=== PATIENT | male | born 1945 | race Caucasian/White ===

== ENCOUNTER 2017-07-11 09:39 | Inpatient (IN) | payer MEDICARE, MEDICAID ==
[2017-07-11] VITALS (41 sets, daily range): BP systolic 90–130; BP diastolic 44–70
[~2017-07-11] VITALS: Ht 172.7 cm; Wt 118.8 kg
[2017-07-11] MEDS ORDERED: HEPARIN-D5W 20,000 UNIT/500 ML 500 ML IV ONE (09:49)
[2017-07-11] MEDS ORDERED: NS 250ML 250 ML IV ONE (13:03)
[2017-07-11] MEDS ORDERED: NS 1000ML 1,000 ML ONE ×2 (13:03→15:18)
[2017-07-11] MEDS ORDERED: VERSED ONE (13:04)
[2017-07-11] MEDS ORDERED: LEVOPHED ONE (13:04)
[2017-07-11 13:19] LABS: ABG PCO2 38.2 mmHg (35.0-45.0); ABG PH 7.267 (7.350-7.450); BE(B) -9.2 mmol/L (-2.0-2.0); pO2 104.8 mmHg (75.0-100.0)
[2017-07-11] MEDS ORDERED: NS IV SCH (13:30)
[2017-07-11] MEDS ORDERED: VANCOMYCIN HCL IV SCH (13:30)
[2017-07-11 13:36] LABS: BASOPHIL % 0.2 % (0.0-0.2); EOSINOPHIL # 0.1 10^3/uL (0.0-0.2); EOSINOPHIL % 2.3 % (0.0-5.0); HEMOGLOBIN 8.8 g/dL (13.9-16.3); LYMPHOCYTES # 0.7 10^3/uL (1.0-4.8); LYMPHOCYTES % 15.1 % (24.0-44.0); MEAN CELL HGB 24.8 pg (26-34); MEAN PLATELET VOLUME 9.5 fL (7.8-11.0); MONOCYTES # 0.4 10^3/uL (0.3-0.8); MONOCYTES % 7.9 % (5.0-12.0); NEUTROPHIL # 3.6 10^3/uL (1.8-7.7); NEUTROPHILS % 74.1 % (41.0-85.0); RED CELL DISTRIBUTION WIDTH 15.3 % (11.5-14.5); WHITE BLOOD CELL 4.8 10^3/uL (4.5-11.0)
--- NOTE | 2017-07-11 13:55 | PCM.HP ---
History of Present Illness Reason for Visit: Altered mental status / Complete heart block History of Present Illness This is a 72-year-old male who was accepted in transfer from [facility]. He presented there by EMS for altered mental status and hypotension with complete heart block. Patient had been started on Levophed , but changed to Dopamine, and later Dobutamine was added for inotropic support. Patient had been on transcutanous pacing, but heart rate has increased with presser support. Labs in [place] showed BUN 53, creatinine 2.8; troponin 0.12; BNP 2930 and lactic acid 0.7 He was intubated before transfer by EMS to ICU at [facility] per Dr. Almendarez. Arrives with florid sepsis and hypotensive shock requiring inotropic support. The patient was on Versed drip at 5 mg/hr, Dopamine at 10 mcg/kg/min, and Dobutamine 5 mcg/kg/min. Upon arrival, patient found to be sedated partially, with response to pain; blood pressure 70's and pulse rate in 60's Central subclavian access on right made with x-ray for placement; also NG tube x-ray for placement done. Patient placed on ventilator with settings adjusted by Dr. Almendarez based on initial ABG. Cultures will be obtained for blood, urine, sputum, and wounds, as this patient has multiple decubitus wounds - coccyx, which is uncovered; both lower legs, dressed; and right hip, which is undressed, very deep and appears to be tunneling. Lactic acid initially 1.5 from ABG - which will be redrawn two hours after the first. Antibiotics and septic fluid resuscitation are ordered. Will continue necessary sedation and pain control while on ventilator. According to records, patient has had cerebrovascular incident, left side, with aphasia, Type II diabetes with skin complications; lumbar collapse of vertebra; protein calorie malnutrition; retinopathy, atherosclerotic heart disease with CABG; hypercholesterolemia; peripheral vascular disease of [place] right leg arteris with ulceration of part of the foot; hypertension; BPH with neuromuscular dysfunction of bladder; acute osteomyelitis of right ankle and foot, Past Medical History Cardiac: CAD, CHF, Other (hypokalemia) Pulmonary: COPD [employer]: CVA GI: GERD Musculoskeletal: Other (PVD) Renal/: Chronic Renal Insuff, UTI Past Surgical History: CABG Travel Hx EBOLA RISK:Travel to/contact w: No Is pt experiencing any Ebola s: No Review of Systems Constitutional: Weakness Neurological: Confusion (Poor orientation before intubation) Allergies: Coded Allergies: No Known Allergies (Unverified , 07/11/17) Scheduled Acetaminophen (Tylenol), 1 TAB PO Q4HR, (Reported) Acetaminophen With Codeine (Tylenol With Codeine #3 Tablet), 1 TAB PO Q4HR, ( Reported) Acetazolamide (Acetazolamide), 250 MG PO DAILY24, (Reported) Amlodipine Besylate (Amlodipine Besylate), 1 TAB PO DAILY, (Reported) Aspirin (Aspir 81), 1 TAB PO DAILY, (Reported) Cilostazol (Cilostazol), 1 TAB PO BID, (Reported) Clonidine Hcl (Clonidine Hcl), 1 TAB PO Q6HR, (Reported) Cyclobenzaprine Hcl (Flexeril), 1 TAB PO Q8HR, (Reported) Dextran 70/Hypromellose (Artificial Tears Eye Drops), 2 DROP OP BID, (Reported) Famotidine (Pepcid), 1 TAB PO BID, (Reported) Furosemide (Lasix), 1 TAB PO DAILY, (Reported) Insulin Glargine,Hum.rec.anlog (Lantus Solostar), 25 UNITS SQ BID, (Reported) Ipratropium/Albuterol Sulfate (Iprat-Albut 0.5-3(2.5) Mg/3 Ml), 3 ML IH Q4, ( Reported) Lactobacillus Acidophilus (Acidophilus), 1 EACH PO BID, (Reported) Losartan Potassium (Losartan Potassium), 1 TAB PO DAILY, (Reported) Melatonin (Melatonin), 1 TAB PO HS, (Reported) Metoprolol Tartrate 25MG (Lopresser 25MG), 1 TAB PO BID, (Reported) Ondansetron Hcl (Zofran), 1 TAB PO Q8HR, (Reported) Oseltamivir Phosphate (Tamiflu), 1 CAP PO DAILY24, (Reported) Potassium Chloride (Potassium Chloride), 1 CAP PO DAILY, (Reported) Simethicone (Simethicone), 160 MG PO Q6HR, (Reported) Tamsulosin Hcl (Flomax), 1 CAP PO DAILY, (Reported) Scheduled PRN Glucagon,Human Recombinant (Glucagon Emergency Kit), 1 MG IM PRN PRN for HYPOGLYCEMIA, (Reported) Loperamide Hcl (Loperamide), 4 MG PO PRN PRN for DIARRHEA, (Reported) VTE VTE Risk Score VTE Risk: Score 0-1 = Low Risk (Aggressive mobilization; early ambulation; no VTE prophylaxis required) Score 2: Moderate Risk (Intermittent/Pneumatic Compression Device OR Lovenox/Heparin/Coumadin) Score 3-4: High Risk (Intermittent/Pneumatic Compression Device AND Lovenox/Heparin/Coumadin) Score > or =5: Highest Risk (Intermittent/Pneumatic Compression Device AND Lovenox/Heparin/Coumadin) Exam General Appearance: Other (sedated, ventilated, restrained) HEENT: Atraumatic Cardiovascular: Other (bradycardia with hypotension) Skin: Other (Decubitus ulceration to coccyx, bilateral lower legs, right lateral hip/pelvis) Neuro: Other (Sedated, ventilated, restrained.) Psych/Mental Status: Other (Sedated, ventilated, restrained.) Assessment/Plan Assessment/Plan Problems: (1) Protein calorie malnutrition Status: Chronic SEVERITY: MODERATE PERSISTENT COMPLICATION TYPE: W/ STATUS ICD Code: E46 - Unspecified protein-calorie malnutrition SNOMED: 034319326 (2) Type II diabetes mellitus Status: Chronic SEVERITY: SEVERE PERSISTENT COMPLICATION TYPE: W/ ACUTE EXACERBATION ICD Code: E11.9 - Type 2 diabetes mellitus without complications SNOMED: 82639215 (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 SEVERITY: MODERATE PERSISTENT COMPLICATION TYPE: W/ ACUTE EXACERBATION ICD Code: E11.21 - Type 2 diabetes mellitus with diabetic nephropathy SNOMED: 25495859, 60493689 (4) Type II diabetes mellitus with peripheral artery disease Status: Chronic ICD Code: E11.51 - Type 2 diabetes mellitus with diabetic peripheral angiopathy without gangrene SNOMED: 87571388, 727194326 (5) Type II diabetes mellitus with ulcer Status: Acute SEVERITY: SEVERE PERSISTENT COMPLICATION TYPE: W/ ACUTE EXACERBATION ICD Code: E11.622 - Type 2 diabetes mellitus with other skin ulcer; L98.499 - Non-pressure chronic ulcer of skin of other sites with unspecified severity SNOMED: 647393280 (6) Complete heart block Status: Acute SEVERITY: SEVERE PERSISTENT COMPLICATION TYPE: W/ ACUTE EXACERBATION ICD Code: I44.2 - Atrioventricular block, complete SNOMED: 09596548 (7) Septic shock due to undetermined organism Status: Acute SEVERITY: SEVERE PERSISTENT COMPLICATION TYPE: W/ ACUTE EXACERBATION ICD Code: A41.9 - Sepsis, unspecified organism; R65.21 - Severe sepsis with septic shock SNOMED: 92639137 Plan Admit to ICU IV fluids for sepsis protocol started with LR/D5W (blood sugar 63). [facility] ABG - 7.267, CO2 38.2, O2 104.8; LA 1.5 (increased from [place]). Troponin from our lab <0.02; CKMB 12.1. Urine is pasty thick and white, with positive protein, blood, bacteria, RBC, WBC and Leukocyte esterase. Currently on vent with SIMV on 50% FIO2, TV 500, PEEP 5, PS 7. Sputum culture and gram stain ordered. Central venous line in place with CVP, pressor support. Skin wounds to be cultured and Wound Care team to address. Padgett cath - IV peripheral, two currently. Restraints in place. Nursing will contact family - DNR/Full code status to be discussed. SCDs cannot be used over leg wounds - Lovenox will be ordered. Vancomycin and Zosyn will be added for antibiotic coverage. Echocardiogram has been delayed due to patient being on Bear-Huggr for rectal temp of 87.0. Son has not been reached, but I did speak with the step-daughter and step-son - the is unable to provide any assistance as she is also being put in facility for dementia. Was advised that at some distant time, the social media director at another facility asked and the patient told her/him that he wanted everything done for him. At this time, we will continue to try to contact the son - Jaime Torres. Problem Qualifiers (1) Protein calorie malnutrition: Protein-calorie malnutrition severity: moderate Qualified Codes: E44.0 - Moderate protein-calorie malnutrition (2) Type II diabetes mellitus: Diabetes mellitus complication status: with skin complications Diabetes mellitus complication detail: with other skin ulcer Diabetes mellitus mcfp insulin use: unspecified mcfp insulin use status Qualified Codes: E11.622 - Type 2 diabetes mellitus with other skin ulcer; L98.499 - Non- pressure chronic ulcer of skin of other sites with unspecified severity MILAN FAIR APRN, NP Jul 11, 2017 13:55 DEA ALMENDAREZ MD Jul 11, 2017 17:52
[2017-07-11] MEDS: ZOSYN 3.375 GM/50 ML 50 ML IV SCH ×2 (14:00→20:05)
[2017-07-11 14:06] LABS: APPEARANCE,URINE CLOUDY (CLEAR); BILIRUBIN,URINE NEGATIVE (NEGATIVE); UA COLOR STRAW (YELLOW); UROBILINOGEN,URINE NORMAL (NEGATIVE)
[2017-07-11] MEDS ORDERED: D5LR 1000ML 1,000 ML ONE (14:06)
[2017-07-11 14:07] LABS: WBC,URINE TNTC WBC/HPF (0-2)
--- NOTE | 2017-07-11 14:12 | DIREP ---
PROCEDURE:CHEST 1 VIEW COMPARISON:[facility], CR, XRAY CHEST SINGLE VW, 07/11/2017, 10:07 AM. INDICATIONS:sheath placement FINDINGS: LUNGS/PLEURA:Stable ETT. Lordotic projection and low lung volumes. Stable right basilar haziness consistent with pleural effusion, atelectasis or pneumonia. Stable mild diffuse interstitial thickening. No pneumothorax. CARDIAC:Size difficult to evaluate due to elevated hemidiaphragms. CABG. Prominent pulmonary vascularity. MEDIASTINUM:Normal. BONES:Normal. OTHER:Placement of right subclavian hemostatic sheath with the tip overlying the SVC. NGT courses off the field of view. CONCLUSION: 1. No pneumothorax post right subclavian hemostatic sheath placement. 2. Stable right basilar pulmonary opacities. 3. Stable mild pulmonary vascular congestion versus accentuation from low lung volumes. Dictated by: Consuelo Chandler MD on 07/11/2017 at 02:06 PM
--- NOTE | 2017-07-11 14:14 | PCM.EKG ---
[facility] Test Date: 2017-07-11 Test Time: 13:33:31 Pat Name: CORRY DUVALL Department: Room: ICU3 A Gender: M Tape Maker: RT : 1945 Requested By: MILAN FAIR Order Number: [id number] Reading MD: Measurements Intervals [place]bler Rate: 64 P: OR: QRS: 54 QRSD: 96 T: 51 QT: 428 QTc: 441 Interpretive Statements Junctional rhythm Low voltage QRS Abnormal ECG No previous ECG available for comparison Please click the below link to view image of tracing.
--- NOTE | 2017-07-11 14:17 | OPH ---
DATE OF SURGERY: 07/11/2017 PROCEDURE PERFORMED: Insertion of central venous access into right subclavian vein using a sterile technique. COMPLICATIONS: None. BLOOD LOSS: Minimal, less than 10 mL INDICATIONS: The patient is a 72-year-old gentleman who is a custodial resident, transferred initially to [facility] emergency room for evaluation of heart block, hypotension, altered mental status, and early sepsis, and then transferred to our facility to manage cardiac condition and the possibility of a complete heart block. Upon arrival, the patient was on 3 vasopressors through peripheral access, and given the need to establish a central venous access for more medical management and resuscitation with fluids, antibiotics, and IV pressors, and the possible need to pace the patient through transvenous temporary pacing in case a recurrence of a heart block was to be noted, and the decision was made to proceed with insertion of a central venous access. DESCRIPTION OF PROCEDURE: The right anterior chest wall was prepped and draped and sterilized properly. The right subclavicular space was engaged successfully with lidocaine for local analgesia. The venous access needle was advanced carefully into the right subclavian vein and engaged successfully followed by advancing the guidewire. The skin was tunneled through the dilator followed by advancing a 6-Cypriot sheath sutured to the skin with positive blood flow in the sheath port, and that was successfully placed and without complications. The patient was already intubated. IMPRESSION: 1. Under sterile technique, this was a successful insertion of a 6-Cypriot central venous access sheath through the right subclavian vein, to be utilized as a central venous access catheter and possible port for placing a transvenous pacemaker wire for future needs. 2. The procedure was well tolerated and without immediate complication. RECOMMENDATIONS: 1. Chest x-ray. 2. Okay to start using the sheath to infuse fluids, antibiotics, and pressors if needed. 3. Please maintain sterility and good fixation to the skin in case the sheath would be needed to insert a transvenous temporary pacemaker. The procedure was well tolerated and was without any immediate complication. Yanci Almendarez MD DR: DAMIEN/magda JOB# [id number]
--- NOTE | 2017-07-11 14:18 | DIREP ---
PROCEDURE:XRAY ABDOMEN SINGLE VW COMPARISON:None. INDICATIONS:NG tube place FINDINGS: A single view centered on the hemidiaphragm shows the NGT side hole at the EG junction and NGT tip in the superior gastric fundus. CONCLUSION:NGT side hole at the EG junction and should be advanced. Dictated by: Consuelo Chandler MD on 07/11/2017 at 02:11 PM
[2017-07-11 14:29] LABS: CALCIUM 8.5 mg/dL (8.4-10.5); CARBON DIOXIDE 17.5 mmol/L (20.0-32)
[2017-07-11] MEDS ORDERED: ONDA4TAB7 PO (14:35)
[2017-07-11] MEDS ORDERED: OSEL30CA PO (14:35)
[2017-07-11] MEDS ORDERED: ACET-685 PO (14:35)
[2017-07-11] MEDS ORDERED: ACET325T12 PO (14:35)
[2017-07-11] MEDS ORDERED: IPRA3AMP IH (14:35)
[2017-07-11] MEDS ORDERED: DEXT15DR5 OP (14:52)
[2017-07-11] MEDS ORDERED: LOPE2CAP PO (14:52)
[2017-07-11] MEDS ORDERED: TAMS-14 PO (14:52)
[2017-07-11] MEDS ORDERED: AMLO10TA2 PO (14:52)
[2017-07-11] MEDS ORDERED: ACET250T2 PO (14:52)
[2017-07-11] MEDS ORDERED: INSU100I13 SQ (14:52)
[2017-07-11] MEDS ORDERED: CYCL10TA2 PO (14:52)
[2017-07-11] MEDS ORDERED: POTA10CA PO (14:52)
[2017-07-11] MEDS ORDERED: MELA3TAB2 PO (14:52)
[2017-07-11] MEDS ORDERED: FAMO-75 PO (14:52)
[2017-07-11] MEDS ORDERED: LOSA25TA5 PO (14:52)
[2017-07-11] MEDS ORDERED: LACT1CAP4 PO (14:52)
[2017-07-11] MEDS ORDERED: SIME80TA16 PO (14:52)
[2017-07-11] MEDS ORDERED: FURO-80 PO (14:52)
[2017-07-11] MEDS ORDERED: ASPI-484 PO (14:52)
[2017-07-11] MEDS ORDERED: GLUC1KIT IM (14:52)
[2017-07-11] MEDS ORDERED: CILO100T PO (14:52)
[2017-07-11] MEDS ORDERED: CLON0.1T PO (14:52)
[2017-07-11] MEDS ORDERED: METO25TA4 PO (14:52)
[2017-07-11] MEDS: NS IV SCH ×3 (15:00→17:58)
[2017-07-11] MEDS: VANCOMYCIN HCL IV SCH (15:00)
[2017-07-11 15:51] LABS: ABG PCO2 39.6 mmHg (35.0-45.0); ABG PH 7.225 (7.350-7.450); BE(B) -10.9 mmol/L (-2.0-2.0)
[2017-07-11] MEDS ORDERED: NS 1000ML 2,000 ML ONE (16:11)
[2017-07-11] MEDS ORDERED: DOPAMINE 400 MG/D5W 250 ML 250 ML IV ONE (16:35)
[2017-07-11] MEDS ORDERED: [UNRECOGNIZED DRUG - OTHER] IV SCH (17:00)
[2017-07-11] MEDS ORDERED: SODIUM BICARBONATE IV SCH (17:00)
[2017-07-11] MEDS ORDERED: BUMINATE 25% 100 ML IV ONE (17:35)
[2017-07-11] MEDS: DOPAMINE 400 MG/D5W 250 ML 250 ML IV SCH ×2 (17:56→22:29)
[2017-07-11] MEDS: SODIUM BICARBONATE IV SCH (17:57)
[2017-07-11] MEDS: VERSED IV SCH (17:58)
[2017-07-11] MEDS ORDERED: BUMINATE 25% IV ONE (18:00)
[2017-07-11] MEDS ORDERED: LOVENOX SQ ONE (19:56)
[2017-07-11] MEDS: LOVENOX SQ SCH (20:09)
[2017-07-11] MEDS ORDERED: NS 500ML 500 ML IV ONE (20:19)
[2017-07-11] MEDS ORDERED: LASIX ONE (21:07)
[2017-07-11] MEDS ORDERED: LASIX IV STA (21:25)
[2017-07-11] MEDS ORDERED: DEXTROSE 50%-WATER SYRINGE IV ONE (23:56)
[2017-07-12] VITALS (78 sets, daily range): BP systolic 84–149; BP diastolic 41–76
[2017-07-12] MEDS: ZOSYN 3.375 GM/50 ML 50 ML IV SCH ×4 (01:11→19:40)
[2017-07-12] MEDS: VANCOMYCIN HCL IV SCH (02:33)
[2017-07-12] MEDS: NS IV SCH ×5 (02:33→22:14)
[2017-07-12] MEDS ORDERED: LEVOPHED ONE (02:56)
[2017-07-12] MEDS ORDERED: NS 250ML 250 ML IV ONE (02:56)
[2017-07-12] MEDS: VERSED IV SCH ×3 (03:05→22:14)
[2017-07-12] MEDS: LEVOPHED 8 MG in NS 250ML 250 ML IV SCH ×2 (03:07→16:36)
[2017-07-12] MEDS: DOPAMINE 400 MG/D5W 250 ML 250 ML IV SCH ×3 (04:34→23:22)
[2017-07-12 05:54] LABS: BASOPHIL % 0.1 % (0.0-0.2); EOSINOPHIL # 0.1 10^3/uL (0.0-0.2); EOSINOPHIL % 1.4 % (0.0-5.0); HEMOGLOBIN 7.9 g/dL (13.9-16.3); LYMPHOCYTES # 0.4 10^3/uL (1.0-4.8); LYMPHOCYTES % 5.6 % (24.0-44.0); MEAN CELL HGB 25.2 pg (26-34); MEAN CELL HGB CONCENTRATION 32.4 g/dL (33-37); MEAN PLATELET VOLUME 9.1 fL (7.8-11.0); MONOCYTES # 0.6 10^3/uL (0.3-0.8); NEUTROPHIL # 6.7 10^3/uL (1.8-7.7); NEUTROPHILS % 84.9 % (41.0-85.0); PLATELET COUNT 210 10^3/uL (150-400); RED CELL DISTRIBUTION WIDTH 15.2 % (11.5-14.5); WHITE BLOOD CELL 7.9 10^3/uL (4.5-11.0)
--- NOTE | 2017-07-12 05:59 | PCM.EKG ---
[facility] Test Date: 2017-07-12 Test Time: 06:00:40 Pat Name: CORRY DUVALL Department: Room: ICU3 A Gender: M English And Reading Instructor: CAROLE : 1945 Requested By: DEA JUDGE Order Number: [id number] Reading MD: Measurements Intervals [place] Rate: 78 P: 53 CA: 250 QRS: 104 QRSD: 78 T: 54 QT: 354 QTc: 403 Interpretive Statements Sinus rhythm with 1st degree AV block Low voltage QRS Borderline ECG No previous ECG available for comparison Please click the below link to view image of tracing.
[2017-07-12 06:23] LABS: BAND NEUTROPHILS 3 % (2-6); LYMPHOCYTE 8 % (25-36); MONOCYTE 8 % (3-9); SEGMENTED NEUTROPHILS 81 % (31-76)
[2017-07-12 06:24] LABS: ALANINE AMINOTRANSFERASE(ML) 22 U/L (12-78); ALKALINE PHOSPHATASE 91 U/L (50-136); ASPARTATE AMINO TRANSFERASE 17 U/L (0-35); CALCIUM 7.8 mg/dL (8.4-10.5); CARBON DIOXIDE 17.6 mmol/L (20.0-32); GLUCOSE 71 mg/dL (70-110)
[2017-07-12] MEDS ORDERED: DEXTROSE 50%-WATER SYRINGE IV ONE ×3 (07:15→11:32)
[2017-07-12] MEDS ORDERED: DEXTROSE 50%-WATER SYRINGE IV STA ×2 (07:27→11:44)
[2017-07-12] MEDS: SODIUM BICARBONATE IV SCH (07:29)
--- NOTE | 2017-07-12 08:40 | PRM.PN ---
Subjective Subjective Date: Jul 12, 2017 Time: 08:33 Subjective Patient remains on ventilator with IV inotrope medications by IVPB. Blood pressure is stable and so dopamine will be weaned at 1 mcg/kg/min down per hour. Lungs now have coarse rales throughout all mahmood. ABG is currently being drawn. Echo will be done as soon as this is completed. Patient History: VTE VTE Risk Total Score: >5 VTE Risk Score VTE Risk: Score 0-1 = Low Risk (Aggressive mobilization; early ambulation; no VTE prophylaxis required) Score 2: Moderate Risk (Intermittent/Pneumatic Compression Device OR Lovenox/Heparin/Coumadin) Score 3-4: High Risk (Intermittent/Pneumatic Compression Device AND Lovenox/Heparin/Coumadin) Score > or =5: Highest Risk (Intermittent/Pneumatic Compression Device AND Lovenox/Heparin/Coumadin) Review of Systems Constitutional: Weakness Respiratory: Other (Coarse rales to all mahmood) Genitourinary: Other (Catheter draining cloudy urine - output 1000+ over auto refinisher. ) Neurological: Other (Sedated, intubated, restrained) Allergies: Coded Allergies: No Known Allergies (Unverified , 07/11/17) Scheduled Acetaminophen (Tylenol), 1 TAB PO Q4HR, (Reported) Acetaminophen With Codeine (Tylenol With Codeine #3 Tablet), 1 TAB PO Q4HR, ( Reported) Acetazolamide (Acetazolamide), 250 MG PO DAILY24, (Reported) Amlodipine Besylate (Amlodipine Besylate), 1 TAB PO DAILY, (Reported) Aspirin (Aspir 81), 1 TAB PO DAILY, (Reported) Cilostazol (Cilostazol), 1 TAB PO BID, (Reported) Clonidine Hcl (Clonidine Hcl), 1 TAB PO Q6HR, (Reported) Cyclobenzaprine Hcl (Flexeril), 1 TAB PO Q8HR, (Reported) Dextran 70/Hypromellose (Artificial Tears Eye Drops), 2 DROP OP BID, (Reported) Famotidine (Pepcid), 1 TAB PO BID, (Reported) Furosemide (Lasix), 1 TAB PO DAILY, (Reported) Insulin Glargine,Hum.rec.anlog (Lantus Solostar), 25 UNITS SQ BID, (Reported) Ipratropium/Albuterol Sulfate (Iprat-Albut 0.5-3(2.5) Mg/3 Ml), 3 ML IH Q4, ( Reported) Lactobacillus Acidophilus (Acidophilus), 1 EACH PO BID, (Reported) Losartan Potassium (Losartan Potassium), 1 TAB PO DAILY, (Reported) Melatonin (Melatonin), 1 TAB PO HS, (Reported) Metoprolol Tartrate 25MG (Lopresser 25MG), 1 TAB PO BID, (Reported) Ondansetron Hcl (Zofran), 1 TAB PO Q8HR, (Reported) Oseltamivir Phosphate (Tamiflu), 1 CAP PO DAILY24, (Reported) Potassium Chloride (Potassium Chloride), 1 CAP PO DAILY, (Reported) Simethicone (Simethicone), 160 MG PO Q6HR, (Reported) Tamsulosin Hcl (Flomax), 1 CAP PO DAILY, (Reported) Scheduled PRN Glucagon,Human Recombinant (Glucagon Emergency Kit), 1 MG IM PRN PRN for HYPOGLYCEMIA, (Reported) Loperamide Hcl (Loperamide), 4 MG PO PRN PRN for DIARRHEA, (Reported) Objective Vitals and I/O Vital Sign - Last 24 Hours 07/11/17 07/11/17 07/11/17 07/11/17 13:09 13:15 13:30 13:45 Pulse 61 105 66 65 Resp 12 40 28 16 B/P (MAP) 90/48 (62) 98/53 (68) 98/48 (65) 96/54 (68) Pulse Ox 100 100 100 100 07/11/17 07/11/17 07/11/17 07/11/17 14:00 14:00 14:15 14:30 Temp 86.7 86.7 Pulse 65 65 65 Resp 16 16 16 B/P (MAP) 103/46 (65) 114/59 (77) 106/57 (73) Pulse Ox 97 100 100 O2 Delivery Mechanical Ventilator 07/11/17 07/11/17 07/11/17 07/11/17 14:33 14:35 14:42 14:46 Temp 86.9 Pulse 65 70 65 Resp 12 19 16 B/P (MAP) 117/57 (77) Pulse Ox 100 100 100 100 O2 Delivery Mechanical Ventilator FiO2 50 50 07/11/17 07/11/17 07/11/17 07/11/17 15:16 15:30 15:31 15:46 Temp 87.3 Pulse 66 66 67 B/P (MAP) 118/55 (76) Pulse Ox 95 100 100 92 07/11/17 07/11/17 07/11/17 07/11/17 15:52 15:53 16:00 16:01 Pulse 75 66 65 65 B/P (MAP) 130/61 (84) 111/56 (74) 113/59 (77) Pulse Ox 96 95 96 97 07/11/17 07/11/17 07/11/17 07/11/17 16:16 16:23 16:30 16:31 Temp 89.5 Pulse 67 68 68 69 Resp 18 B/P (MAP) 112/58 (76) Pulse Ox 96 96 94 93 FiO2 40 07/11/17 07/11/17 07/11/17 07/11/17 16:45 16:46 16:58 16:58 Pulse 69 69 72 72 Resp 16 16 B/P (MAP) 106/53 (70) Pulse Ox 95 97 96 FiO2 40 07/11/17 07/11/17 07/11/17 07/11/17 16:58 17:00 17:01 17:15 Pulse 71 71 73 B/P (MAP) 114/55 (74) 109/55 (73) Pulse Ox 95 96 98 O2 Delivery Mechanical Ventilator 07/11/17 07/11/17 07/11/17 07/11/17 17:16 17:30 17:31 18:06 Temp 90.6 Pulse 72 75 75 78 Resp 21 B/P (MAP) 117/60 (79) Pulse Ox 98 97 98 97 FiO2 40 07/11/17 07/11/17 07/11/17 07/11/17 19:00 19:00 19:00 19:15 Temp 94.5 Pulse 82 94 84 Resp 28 28 B/P (MAP) 110/56 (74) 114/58 (76) Pulse Ox 97 98 O2 Delivery Mechanical Ventilator FiO2 40 07/11/17 07/11/17 07/11/17 07/11/17 19:30 19:45 20:00 20:07 Temp 96.1 Pulse 86 87 88 89 Resp 28 29 29 25 B/P (MAP) 113/56 (75) 112/57 (75) 115/54 (74) Pulse Ox 98 98 98 99 O2 Delivery Mechanical Ventilator FiO2 40 07/11/17 07/11/17 07/11/17 07/11/17 20:08 20:15 20:21 20:30 Pulse 89 89 89 90 Resp B/P (MAP) 109/48 (68) 108/51 (70) 111/55 (73) Pulse Ox 99 100 98 98 FiO2 40 07/11/17 07/11/17 07/11/17 07/11/17 20:45 21:00 21:15 21:27 Temp 97.3 Pulse 92 93 93 Resp B/P (MAP) 124/70 (88) 114/59 (77) 109/55 (73) 116/76 Pulse Ox 97 97 98 07/11/17 07/11/17 07/11/17 07/11/17 21:30 21:45 22:00 22:01 Temp 97.9 97.9 Pulse 93 94 94 93 Resp B/P (MAP) 102/52 (69) 107/52 (70) 106/48 (67) 103/44 (63) Pulse Ox 97 97 97 98 07/11/17 07/11/17 07/11/17 07/11/17 22:05 22:15 22:26 22:30 Temp 98.6 Pulse 90 94 94 95 Resp B/P (MAP) 105/48 (67) 108/53 (71) 108/53 (71) Pulse Ox 99 97 99 98 FiO2 40 07/11/17 07/11/17 07/11/17 07/11/17 22:45 23:00 23:15 23:25 Temp 99.0 Pulse 94 95 95 94 Resp B/P (MAP) 107/54 (71) 110/58 (75) 110/53 (72) Pulse Ox 99 98 97 FiO2 40 07/11/17 07/11/17 07/12/17 07/12/17 23:30 23:45 00:00 00:00 Temp 99.3 99.2 Pulse 94 93 92 92 Resp 29 B/P (MAP) 107/54 (71) 111/55 (73) 111/52 (71) 111/52 (71) Pulse Ox 98 98 100 100 07/12/17 07/12/17 07/12/17 07/12/17 00:00 00:08 00:14 00:15 Pulse 91 89 91 Resp 28 B/P (MAP) 105/55 (72) Pulse Ox 99 99 O2 Delivery Mechanical Ventilator FiO2 40 07/12/17 07/12/17 07/12/17 07/12/17 00:30 00:45 01:00 01:15 Temp 99.0 Pulse 89 87 84 82 Resp 27 B/P (MAP) 107/57 (74) 100/54 (69) 93/55 (68) 96/50 (65) Pulse Ox 99 100 100 99 07/12/17 07/12/17 07/12/17 07/12/17 01:30 01:45 01:56 02:00 Temp 98.0 96.8 Pulse 84 81 81 81 Resp B/P (MAP) 97/50 (66) 91/48 (62) 92/50 (64) 93/45 (61) Pulse Ox 98 99 98 98 07/12/17 07/12/17 07/12/17 07/12/17 02:15 02:21 02:30 02:45 Pulse 81 81 81 81 Resp B/P (MAP) 94/43 (60) 93/49 (64) 95/41 (59) Pulse Ox 97 99 97 98 FiO2 40 07/12/17 07/12/17 07/12/17 07/12/17 03:00 03:15 03:23 03:30 Temp 97.0 Pulse 80 79 80 79 Resp B/P (MAP) 92/48 (63) 90/47 (61) 93/48 (63) Pulse Ox 98 97 97 07/12/17 07/12/17 07/12/17 07/12/17 03:33 03:45 03:53 04:00 Temp 97.6 Pulse 80 80 80 81 Resp 25 B/P (MAP) 97/54 (68) 105/57 (73) Pulse Ox 97 98 97 97 FiO2 40 40 07/12/17 07/12/17 07/12/17 07/12/17 04:15 04:30 04:46 05:00 Pulse 80 80 76 79 Resp 24 24 B/P (MAP) 101/52 (68) 105/51 (69) 92/52 (65) 105/49 (67) Pulse Ox 98 98 98 98 07/12/17 07/12/17 07/12/17 07/12/17 05:00 05:16 05:30 05:45 Pulse 81 79 78 Resp 24 24 24 B/P (MAP) 90/56 (67) 105/56 (72) 102/52 (69) Pulse Ox 97 98 97 O2 Delivery Mechanical Ventilator 07/12/17 07/12/17 07/12/17 07/12/17 05:56 06:22 06:22 07:20 Pulse 78 78 80 78 Resp 25 23 27 16 Pulse Ox 97 97 FiO2 40 40 07/12/17 07/12/17 07:20 07:20 Pulse 78 Resp 16 Pulse Ox 97 O2 Delivery Mechanical Ventilator O2 Flow Rate 40.00 FiO2 40 Intake and Output 07/11/17 07/11/17 07/12/17 15:00 23:00 07:00 Intake Total 3943 ml 2461 ml Output Total 750 ml 255 ml Balance 3193 ml 2206 ml General: Other (Sedated, intubated, restrained. ) Lungs: Other (Coarse rales all mahmood) Heart: Regular rate Neuro: Other (Sedated, intubated, restrained. ) Psych/Mental Status: Mental status NL (Sedated, intubated, restrained. ) Medication Reconciliation Scheduled Acetaminophen (Tylenol), 1 TAB PO Q4HR, (Reported) Acetaminophen With Codeine (Tylenol With Codeine #3 Tablet), 1 TAB PO Q4HR, ( Reported) Acetazolamide (Acetazolamide), 250 MG PO DAILY24, (Reported) Amlodipine Besylate (Amlodipine Besylate), 1 TAB PO DAILY, (Reported) Aspirin (Aspir 81), 1 TAB PO DAILY, (Reported) Cilostazol (Cilostazol), 1 TAB PO BID, (Reported) Clonidine Hcl (Clonidine Hcl), 1 TAB PO Q6HR, (Reported) Cyclobenzaprine Hcl (Flexeril), 1 TAB PO Q8HR, (Reported) Dextran 70/Hypromellose (Artificial Tears Eye Drops), 2 DROP OP BID, (Reported) Famotidine (Pepcid), 1 TAB PO BID, (Reported) Furosemide (Lasix), 1 TAB PO DAILY, (Reported) Insulin Glargine,Hum.rec.anlog (Lantus Solostar), 25 UNITS SQ BID, (Reported) Ipratropium/Albuterol Sulfate (Iprat-Albut 0.5-3(2.5) Mg/3 Ml), 3 ML IH Q4, ( Reported) Lactobacillus Acidophilus (Acidophilus), 1 EACH PO BID, (Reported) Losartan Potassium (Losartan Potassium), 1 TAB PO DAILY, (Reported) Melatonin (Melatonin), 1 TAB PO HS, (Reported) Metoprolol Tartrate 25MG (Lopresser 25MG), 1 TAB PO BID, (Reported) Ondansetron Hcl (Zofran), 1 TAB PO Q8HR, (Reported) Oseltamivir Phosphate (Tamiflu), 1 CAP PO DAILY24, (Reported) Potassium Chloride (Potassium Chloride), 1 CAP PO DAILY, (Reported) Simethicone (Simethicone), 160 MG PO Q6HR, (Reported) Tamsulosin Hcl (Flomax), 1 CAP PO DAILY, (Reported) Scheduled PRN Glucagon,Human Recombinant (Glucagon Emergency Kit), 1 MG IM PRN PRN for HYPOGLYCEMIA, (Reported) Loperamide Hcl (Loperamide), 4 MG PO PRN PRN for DIARRHEA, (Reported) Assessment/Plan Assessment/Plan Problems: (1) Septic shock due to undetermined organism Status: Acute SEVERITY: SEVERE PERSISTENT COMPLICATION TYPE: W/ ACUTE EXACERBATION ICD Code: A41.9 - Sepsis, unspecified organism; R65.21 - Severe sepsis with septic shock SNOMED: 70821866 (2) Type II diabetes mellitus with peripheral artery disease Status: Chronic SEVERITY: MODERATE PERSISTENT COMPLICATION TYPE: W/ STATUS ICD Code: E11.51 - Type 2 diabetes mellitus with diabetic peripheral angiopathy without gangrene SNOMED: 79638430, 004724742 (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 Continue medications as ordered. Patient has had multiple episodes of hypoglycemia, has order for D50 as needed. Cultures have returned for sputum and wounds showing Gram positive cocci and Gram negative rods. Continue antibiotics. Repeat ABGs, EKGs, chest x-ray as ordered. MILAN FAIR APRN,LOG WASHER Jul 12, 2017 08:40
[2017-07-12] MEDS: PROTONIX IV IV SCH (09:43)
[2017-07-12 09:47] LABS: ABG PH 7.253 (7.350-7.450); BE(B) -12.3 mmol/L (-2.0-2.0); HCO3act 13.8 mmol/L (22.0-26.0)
[2017-07-12 13:55] LABS: ABG PH 7.317 (7.350-7.450); BE(B) -9.2 mmol/L (-2.0-2.0); pO2 57.4 mmHg (75.0-100.0)
[2017-07-12] MEDS: D5W-1/2NS 1000ML 1,000 ML IV SCH (15:42)
[2017-07-12] MEDS ORDERED: DIFLUCAN IV ONE (18:30)
[2017-07-12] MEDS: VANCOMYCIN HCL 1 GM in NS 250ML 250 ML IV SCH (20:30)
[2017-07-12] MEDS: LOVENOX SQ SCH (21:12)
[2017-07-13] VITALS (99 sets, daily range): BP systolic 80–191; BP diastolic 38–90
[2017-07-13] MEDS: ZOSYN 3.375 GM/50 ML 50 ML IV SCH ×3 (01:27→15:25)
[2017-07-13] MEDS: D5W-1/2NS 1000ML 1,000 ML IV SCH ×2 (01:31→14:46)
--- NOTE | 2017-07-13 04:59 | PCM.EKG ---
[facility] Test Date: 2017-07-13 Test Time: 05:01:22 Pat Name: CORRY DUVALL Department: Room: ICU3 A Gender: M International Tax Manager: CAROLE : 1945 Requested By: DEA JUDGE Order Number: [id number] Reading MD: Measurements Intervals [place] Rate: 79 P: 260 LA: 158 QRS: 57 QRSD: 78 T: 88 QT: 366 QTc: 419 Interpretive Statements Unusual P axis, possible ectopic atrial rhythm with premature atrial complexes Low voltage QRS Abnormal ECG No previous ECG available for comparison Please click the below link to view image of tracing.
[2017-07-13 05:50] LABS: EOSINOPHIL # 0.1 10^3/uL (0.0-0.2); LYMPHOCYTES # 0.5 10^3/uL (1.0-4.8); LYMPHOCYTES % 13.6 % (24.0-44.0); MEAN CELL HGB 23.8 pg (26-34); MEAN CELL HGB CONCENTRATION 30.1 g/dL (33-37); MEAN CORP VOLUME 79.2 fL (78-100); MEAN PLATELET VOLUME 9.6 fL (7.8-11.0); MONOCYTES # 0.4 10^3/uL (0.3-0.8); NEUTROPHIL # 2.4 10^3/uL (1.8-7.7); NEUTROPHILS % 71.8 % (41.0-85.0); RED CELL DISTRIBUTION WIDTH 15.7 % (11.5-14.5); WHITE BLOOD CELL 3.4 10^3/uL (4.5-11.0)
[2017-07-13 05:57] LABS: HEMOGLOBIN 6.2 g/dL (13.9-16.3)
[2017-07-13 06:19] LABS: CALCIUM 7.5 mg/dL (8.4-10.5); CARBON DIOXIDE 17.3 mmol/L (20.0-32)
[2017-07-13 06:45] LABS: EOSINOPHIL # 0.1 10^3/uL (0.0-0.2); LYMPHOCYTES # 0.5 10^3/uL (1.0-4.8); LYMPHOCYTES % 15.5 % (24.0-44.0); MEAN CELL HGB 23.9 pg (26-34); MEAN CELL HGB CONCENTRATION 30.2 g/dL (33-37); MEAN CORP VOLUME 79.2 fL (78-100); MEAN PLATELET VOLUME 8.8 fL (7.8-11.0); MONOCYTES # 0.4 10^3/uL (0.3-0.8); NEUTROPHIL # 2.2 10^3/uL (1.8-7.7); NEUTROPHILS % 67.2 % (41.0-85.0); RED CELL DISTRIBUTION WIDTH 15.7 % (11.5-14.5); WHITE BLOOD CELL 3.2 10^3/uL (4.5-11.0)
[2017-07-13 06:47] LABS: HEMOGLOBIN 6.1 g/dL (13.9-16.3)
[2017-07-13 08:21] LABS: ABG PCO2 23.9 mmHg (35.0-45.0); ABG PH 7.402 (7.350-7.450); BE(B) -9.5 mmol/L (-2.0-2.0); HCO3act 14.5 mmol/L (22.0-26.0); pO2 120.8 mmHg (75.0-100.0)
[2017-07-13] MEDS ORDERED: HNS 500ML 500 ML IV ONE (08:59)
--- NOTE | 2017-07-13 09:19 | PRM.PN ---
Subjective Subjective Date: Jul 13, 2017 Time: 08:51 Subjective Patient remains sedated on ventilator, but both dopamine and dobutamine have been discontinued with stable blood pressures. Patient History: Events Since Last Encounter GENERAL - Patient does respond to voice by moving head but does not follow commands to open eyes. SKIN - Warm, dry. See Wound Care for specifics of open lesions to right hip, bilateral lower legs, coccyx. HEENT - Pupils 2 mm with poor response to constriction or dilation but positive blink to opening eyelids; NG tube, ET tube. CHEST - Lungs still with fine crackles; fair air exchange with ventilator. Cardiac rate 55-65, but blood pressure has decreased to 77/33 after dopamine was discontinued. ABDOMEN - Bowel sounds hypoactive - NG suction audible in upper mahmood and lung auscultation. PEREZ - Now yellowish urine with ~400 ml output over nightclub manager. LIMBS - Warm to touch; positive motion of arms. Restrained - soft restraints upper extremities to prevent interfering with devices unintentionally. VTE VTE Risk Total Score: >5 VTE Risk Score VTE Risk: Score 0-1 = Low Risk (Aggressive mobilization; early ambulation; no VTE prophylaxis required) Score 2: Moderate Risk (Intermittent/Pneumatic Compression Device OR Lovenox/Heparin/Coumadin) Score 3-4: High Risk (Intermittent/Pneumatic Compression Device AND Lovenox/Heparin/Coumadin) Score > or =5: Highest Risk (Intermittent/Pneumatic Compression Device AND Lovenox/Heparin/Coumadin) Review of Systems Respiratory: Other (Coarse rales to all mahmood) Genitourinary: Other (Catheter draining cloudy urine - output 1000+ over nightclub manager. ) Neurological: Other (Sedated, intubated, restrained) Allergies: Coded Allergies: No Known Allergies (Unverified , 07/11/17) Scheduled Acetaminophen (Tylenol), 1 TAB PO Q4HR, (Reported) Acetaminophen With Codeine (Tylenol With Codeine #3 Tablet), 1 TAB PO Q4HR, ( Reported) Acetazolamide (Acetazolamide), 250 MG PO DAILY24, (Reported) Amlodipine Besylate (Amlodipine Besylate), 1 TAB PO DAILY, (Reported) Aspirin (Aspir 81), 1 TAB PO DAILY, (Reported) Cilostazol (Cilostazol), 1 TAB PO BID, (Reported) Clonidine Hcl (Clonidine Hcl), 1 TAB PO Q6HR, (Reported) Cyclobenzaprine Hcl (Flexeril), 1 TAB PO Q8HR, (Reported) Dextran 70/Hypromellose (Artificial Tears Eye Drops), 2 DROP OP BID, (Reported) Famotidine (Pepcid), 1 TAB PO BID, (Reported) Furosemide (Lasix), 1 TAB PO DAILY, (Reported) Insulin Glargine,Hum.rec.anlog (Lantus Solostar), 25 UNITS SQ BID, (Reported) Ipratropium/Albuterol Sulfate (Iprat-Albut 0.5-3(2.5) Mg/3 Ml), 3 ML IH Q4, ( Reported) Lactobacillus Acidophilus (Acidophilus), 1 EACH PO BID, (Reported) Losartan Potassium (Losartan Potassium), 1 TAB PO DAILY, (Reported) Melatonin (Melatonin), 1 TAB PO HS, (Reported) Metoprolol Tartrate 25MG (Lopresser 25MG), 1 TAB PO BID, (Reported) Ondansetron Hcl (Zofran), 1 TAB PO Q8HR, (Reported) Oseltamivir Phosphate (Tamiflu), 1 CAP PO DAILY24, (Reported) Potassium Chloride (Potassium Chloride), 1 CAP PO DAILY, (Reported) Simethicone (Simethicone), 160 MG PO Q6HR, (Reported) Tamsulosin Hcl (Flomax), 1 CAP PO DAILY, (Reported) Scheduled PRN Glucagon,Human Recombinant (Glucagon Emergency Kit), 1 MG IM PRN PRN for HYPOGLYCEMIA, (Reported) Loperamide Hcl (Loperamide), 4 MG PO PRN PRN for DIARRHEA, (Reported) Objective Vitals and I/O Vital Sign - Last 24 Hours 07/12/17 07/12/17 07/12/17 07/12/17 09:00 09:15 09:23 09:30 Pulse 78 78 76 79 Resp 21 Pulse Ox 97 98 98 97 O2 Delivery Mechanical Ventilator FiO2 40 07/12/17 07/12/17 07/12/17 07/12/17 09:45 10:00 10:15 10:30 Pulse 79 77 78 79 Pulse Ox 97 97 96 97 07/12/17 07/12/17 07/12/17 07/12/17 10:33 10:45 11:00 11:11 Temp 98.2 Pulse 78 80 71 73 Resp 16 21 B/P (MAP) 114/53 (73) 124/58 (80) 84/43 (57) Pulse Ox 96 93 95 95 FiO2 40 07/12/17 07/12/17 07/12/17 07/12/17 11:15 11:30 11:45 12:00 Temp 98.1 97.9 97.7 97.7 Pulse 75 79 72 78 B/P (MAP) 108/57 (74) 121/55 (77) 149/76 (100) 117/51 (73) Pulse Ox 94 95 97 98 07/12/17 07/12/17 07/12/17 07/12/17 12:15 12:30 12:33 12:33 Temp 97.5 97.5 Pulse 78 75 76 Resp 16 B/P (MAP) 121/57 (78) 114/55 (74) Pulse Ox 97 97 97 O2 Delivery Mechanical Ventilator O2 Flow Rate 40.00 FiO2 40 07/12/17 07/12/17 07/12/17 07/12/17 12:45 13:10 13:52 14:00 Temp 97.5 97.3 97.3 Pulse 76 79 83 77 Resp 26 B/P (MAP) 122/53 (76) 130/62 (84) Pulse Ox 97 97 82 94 FiO2 40 07/12/17 07/12/17 07/12/17 07/12/17 14:02 14:15 14:17 14:30 Temp 97.3 97.3 97.3 97.3 Pulse 77 75 75 75 B/P (MAP) Pulse Ox 95 96 97 96 07/12/17 07/12/17 07/12/17 07/12/17 14:32 14:45 14:47 15:00 Temp 97.3 97.3 97.2 97.2 Pulse 75 76 76 77 B/P (MAP) Pulse Ox 96 96 96 96 07/12/17 07/12/17 07/12/17 07/12/17 15:02 15:15 15:17 15:30 Temp 97.2 97.2 97.2 97.2 Pulse 77 71 72 75 B/P (MAP) Pulse Ox 95 97 07/12/17 07/12/17 07/12/17 07/12/17 15:32 15:43 15:43 15:45 Temp 97.2 97.0 97.0 Pulse 74 82 77 79 Resp 21 B/P (MAP) 116/58 (77) 110/57 (74) Pulse Ox 95 95 96 94 07/12/17 07/12/17 07/12/17 07/12/17 16:00 16:15 16:24 16:24 Temp 97.0 97.0 Pulse 78 96 78 Resp 18 16 B/P (MAP) 116/56 (76) 111/51 (71) Pulse Ox 93 93 O2 Delivery Mechanical Ventilator O2 Flow Rate 40.00 07/12/17 07/12/17 07/12/17 07/12/17 16:27 16:30 16:45 17:00 Temp 97.0 97.2 97.3 Pulse 88 109 80 78 Resp 16 B/P (MAP) 120/59 (79) 107/57 (74) 113/55 (74) Pulse Ox 92 92 91 91 FiO2 40 07/12/17 07/12/17 07/12/17 07/12/17 17:20 19:00 19:00 19:00 Temp 98.4 Pulse 78 83 81 Resp 21 24 B/P (MAP) 111/55 (73) Pulse Ox 93 94 O2 Delivery Mechanical Ventilator O2 Flow Rate 40.00 07/12/17 07/12/17 07/12/17 07/12/17 19:00 19:15 19:30 19:45 Temp 98.4 98.6 98.8 Pulse 83 82 82 82 B/P (MAP) 111/54 (73) 111/53 (72) 113/52 (72) Pulse Ox 94 94 95 FiO2 40 07/12/17 07/12/17 07/12/17 07/12/17 19:57 19:58 20:00 20:15 Temp 98.8 98.8 Pulse 83 83 83 82 Resp 24 21 B/P (MAP) 112/55 (74) 107/44 (65) Pulse Ox 94 94 95 94 O2 Delivery Mechanical Ventilator FiO2 40 07/12/17 07/12/17 07/12/17 07/12/17 20:30 20:45 21:00 21:05 Temp 98.8 99.0 99.0 Pulse 83 83 84 73 Resp 23 B/P (MAP) 115/55 (75) 112/52 (72) 112/52 (72) Pulse Ox 95 94 95 07/12/17 07/12/17 07/12/17 07/12/17 21:45 22:00 22:15 22:30 Temp 99.0 98.8 98.8 98.8 Pulse 85 84 84 84 B/P (MAP) 117/56 (76) 102/56 (71) 118/55 (76) 110/56 (74) Pulse Ox 94 94 95 95 07/12/17 07/12/17 07/12/17 07/12/17 22:31 22:45 22:50 23:00 Temp 98.6 98.6 98.6 Pulse 83 88 83 85 Resp 21 B/P (MAP) 97/49 (65) 101/52 (68) 108/54 (72) Pulse Ox 96 93 93 94 07/12/17 07/12/17 07/12/17 07/12/17 23:00 23:15 23:30 23:45 Temp 98.4 98.4 98.4 Pulse 83 85 83 84 B/P (MAP) 110/57 (74) 105/51 (69) 109/50 (69) Pulse Ox 95 95 95 FiO2 40 07/13/17 07/13/17 07/13/17 07/13/17 00:00 00:00 00:15 00:25 Temp 98.4 98.4 Pulse 83 83 82 Resp 21 B/P (MAP) 102/71 (81) 102/40 (60) Pulse Ox 96 95 96 O2 Delivery Mechanical Ventilator O2 Flow Rate 40.00 07/13/17 07/13/17 07/13/17 07/13/17 00:30 00:45 01:00 01:15 Temp 98.2 98.2 98.2 98.1 Pulse 82 82 82 82 B/P (MAP) 102/50 (67) 100/67 (78) 122/65 (84) 115/44 (67) Pulse Ox 96 96 96 93 07/13/17 07/13/17 07/13/17 07/13/17 01:23 01:30 01:45 01:58 Temp 98.1 98.1 97.9 Pulse 80 80 80 80 Resp 24 B/P (MAP) 98/49 (65) 103/51 (68) 101/53 (69) Pulse Ox 95 95 95 07/13/17 07/13/17 07/13/17 07/13/17 02:00 02:04 03:45 04:00 Temp 97.9 97.5 Pulse 79 79 80 Resp 24 B/P (MAP) 98/53 (68) 109/54 (72) Pulse Ox 95 94 95 O2 Delivery Mechanical Ventilator O2 Flow Rate 40.00 07/13/17 07/13/17 07/13/17 07/13/17 04:00 04:15 04:30 04:45 Temp 97.5 97.3 97.3 97.3 Pulse 80 78 78 78 B/P (MAP) 105/56 (72) 103/56 (72) 93/51 (65) 94/52 (66) Pulse Ox 95 95 94 95 07/13/17 07/13/17 07/13/17 07/13/17 05:00 05:00 05:01 05:16 Temp 97.3 97.3 97.2 Pulse 77 83 77 78 B/P (MAP) 99/54 (69) Pulse Ox 95 95 93 FiO2 40 07/13/17 07/13/17 07/13/17 07/13/17 05:31 05:46 05:48 06:01 Temp 97.2 97.0 97.0 Pulse 78 78 78 77 Resp 23 Pulse Ox 92 94 94 93 07/13/17 07/13/17 06:14 06:20 Temp 97.0 97.0 Pulse 77 76 B/P (MAP) 98/52 (67) 92/45 (61) Pulse Ox 95 94 Intake and Output 07/12/17 07/12/17 07/13/17 15:00 23:00 07:00 Intake Total 100 ml 1162 ml 1895 ml Output Total 1000 ml 1150 ml Balance 100 ml 162 ml 745 ml General: Other HEENT: Other (Equal 2 mm, poor reaction) Lungs: Other (fine crackles to all mahmood now with fair air exchange per ventilator) Abdomen: Other (hypoactive) Extremities: Other (Legs are warm) Skin: Other (See Wound care for evaluation of covered decubitus wounds - coccyx , right hip, bilateral feet) Neuro: Other (Sedated, ventilated, restrained) Psych/Mental Status: Other (Sedated, ventilated, restrained) Medication Reconciliation Scheduled Acetaminophen (Tylenol), 1 TAB PO Q4HR, (Reported) Acetaminophen With Codeine (Tylenol With Codeine #3 Tablet), 1 TAB PO Q4HR, ( Reported) Acetazolamide (Acetazolamide), 250 MG PO DAILY24, (Reported) Amlodipine Besylate (Amlodipine Besylate), 1 TAB PO DAILY, (Reported) Aspirin (Aspir 81), 1 TAB PO DAILY, (Reported) Cilostazol (Cilostazol), 1 TAB PO BID, (Reported) Clonidine Hcl (Clonidine Hcl), 1 TAB PO Q6HR, (Reported) Cyclobenzaprine Hcl (Flexeril), 1 TAB PO Q8HR, (Reported) Dextran 70/Hypromellose (Artificial Tears Eye Drops), 2 DROP OP BID, (Reported) Famotidine (Pepcid), 1 TAB PO BID, (Reported) Furosemide (Lasix), 1 TAB PO DAILY, (Reported) Insulin Glargine,Hum.rec.anlog (Lantus Solostar), 25 UNITS SQ BID, (Reported) Ipratropium/Albuterol Sulfate (Iprat-Albut 0.5-3(2.5) Mg/3 Ml), 3 ML IH Q4, ( Reported) Lactobacillus Acidophilus (Acidophilus), 1 EACH PO BID, (Reported) Losartan Potassium (Losartan Potassium), 1 TAB PO DAILY, (Reported) Melatonin (Melatonin), 1 TAB PO HS, (Reported) Metoprolol Tartrate 25MG (Lopresser 25MG), 1 TAB PO BID, (Reported) Ondansetron Hcl (Zofran), 1 TAB PO Q8HR, (Reported) Oseltamivir Phosphate (Tamiflu), 1 CAP PO DAILY24, (Reported) Potassium Chloride (Potassium Chloride), 1 CAP PO DAILY, (Reported) Simethicone (Simethicone), 160 MG PO Q6HR, (Reported) Tamsulosin Hcl (Flomax), 1 CAP PO DAILY, (Reported) Scheduled PRN Glucagon,Human Recombinant (Glucagon Emergency Kit), 1 MG IM PRN PRN for HYPOGLYCEMIA, (Reported) Loperamide Hcl (Loperamide), 4 MG PO PRN PRN for DIARRHEA, (Reported) Assessment/Plan Assessment/Plan Problems: (1) Protein calorie malnutrition Status: Chronic SEVERITY: MODERATE PERSISTENT COMPLICATION TYPE: W/ STATUS ICD Code: E46 - Unspecified protein-calorie malnutrition SNOMED: 758390268 (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 SEVERITY: MODERATE PERSISTENT COMPLICATION TYPE: W/ ACUTE EXACERBATION ICD Code: E11.21 - Type 2 diabetes mellitus with diabetic nephropathy SNOMED: 89280284, 52511024 (3) Type II diabetes mellitus with ulcer Status: Acute SEVERITY: MODERATE PERSISTENT COMPLICATION TYPE: W/ ACUTE EXACERBATION ICD Code: E11.622 - Type 2 diabetes mellitus with other skin ulcer; L98.499 - Non-pressure chronic ulcer of skin of other sites with unspecified severity SNOMED: 266537156 (4) Septic shock due to undetermined organism Status: Acute SEVERITY: SEVERE PERSISTENT COMPLICATION TYPE: W/ ACUTE EXACERBATION ICD Code: A41.9 - Sepsis, unspecified organism; R65.21 - Severe sepsis with septic shock SNOMED: 13548246 Patient History: Plan Hemoglobin has decreased from 8.8 originally to 6.1; RBC 2.55; WBC 3.2 = type and screen with one unit and labs to be ordered with expectation of two units to be given. BUN increased from yesterday but 58, 52, now 54; Cr 2.75. Will continue fluids for kidney function. Wounds and sputum have shown Gram positive Cocci and Gram negative rods; urine also showed fungus = currently on regimen of Zosyn, Vancomycin and three days of Diflucan. Wound care team will continue to address wound treatment. ABG this morning showed compensated pH with high PaO2, so ventilator FIO2 was decreased to 35%. Oral and ET tube care to continue. Restrains will continue for patient safety from interrupted care. Hypotension with inotropic medications discontinued, and may be used again while blood is infusing. Titrate to effect for SBP >100 or MAP >60. Nursing staff talked with son this morning while getting blood consent, and he wishes the patient to remain a full code. Order has been put back on charting. Duration Duration or Time Spent with Pa: 45 Problem Qualifiers (1) Protein calorie malnutrition: Protein-calorie malnutrition severity: moderate Qualified Codes: E44.0 - Moderate protein-calorie malnutrition MILAN FAIR APRN, NP Jul 13, 2017 09:18
[2017-07-13] MEDS: PROTONIX IV IV SCH (09:22)
[2017-07-13] MEDS: VANCOMYCIN HCL 1 GM in NS 250ML 250 ML IV SCH (09:22)
--- NOTE | 2017-07-13 09:31 | DIREP ---
PROCEDURE:CHEST 1 VIEW COMPARISON:[facility], CR, XRAY CHEST SINGLE VW, 07/11/2017, 01:19 PM. INDICATIONS:ventalitor FINDINGS: LUNGS/PLEURA:Bibasilar infiltrates and small to moderate bilateral pleural effusions are noted. VASCULATURE:Mildly increased pulmonary vasculature. CARDIAC:Mild cardiomegaly. Post CABG changes with median sternotomy wires. MEDIASTINUM:Normal. No visible mass or adenopathy. BONES:Mild scoliosis with mild degenerative disc disease and spondylosis. OTHER:EKG leads overlie the chest. Lines and tubes are unchanged. No pneumothorax. CONCLUSION:No change in lines and tubes. Worsening bibasilar infiltrates and small to moderate bilateral pleural effusions. Pulmonary vascular congestion also seen. Dictated by: Emory Estrada M.D. on 07/13/2017 at 08:28 AM Read in [place]
[2017-07-13] MEDS: NS IV SCH ×3 (09:33→14:58)
[2017-07-13] MEDS: VERSED IV SCH ×3 (09:33→14:58)
[2017-07-13] MEDS ORDERED: PHENYLEPHRINE HCL IV SCH (10:30)
[2017-07-13] MEDS ORDERED: NS IV SCH (10:30)
[2017-07-13] MEDS ORDERED: DIFLUCAN 100 ML IV SCH (11:00)
[2017-07-13] MEDS ORDERED: DIFLUCAN IV SCH (11:00)
[2017-07-13] MEDS ORDERED: LASIX IV STA (11:33)
[2017-07-13] MEDS: DOPAMINE 400 MG/D5W 250 ML 250 ML IV SCH (11:42)
--- NOTE | 2017-07-13 12:04 | PRM.PN ---
Course Blood Pressure Systolic: 115 Blood Pressure Diastolic: 66 Blood Pressure Mean: 61 Notes The patient's microbiological studies have returned: SPUTUM: MRSA WOUNDS: MRSA, Pseudomonas, Enterococcus faecalis group D. URINE: Budding yeast. BLOOD: Initial cultures negative. Due to this and the patient's continued instability and decreasing hemoglobin/ RBC/WBC, it is decided the patient would be better served by transfer to a facility where infectious disease speciality can be sought. At 10:45, contacted transfer center at [facility], and is discharging currently and expecting an ICU bed this afternoon. At 10:57, I called and updated the son about the patient's condition and the need to transfer him, and the son was in agreement to transfer. RECCY advises that this patient has 14 days of Medicare that will not renew until he is out of hospital/facility for 61 days. The patient is currently on Versed for sedation; dopamine at 1 mcg/kg/min with stability of his vital signs; vancomycin, Zosyn, Flagyl all IVPB. Patient has a subclavian sheath in as he was initially in third degree heart block. Since admission to [facility], pacing has not been necessary. Intubated with 8.0 mm tube at 24 cm; vent setting TV 500, FIO2 35, rate 12 IMV, PEEP 7, and PS 5. Patient had echocardiogram that has not been officially read yet but the tech noted consistent EF 47% with dilated chambers. 12:02 - contacted [facility] Transfer Center = likely getting a bed soon. Will keep in touch. 13;30 - Transfer Center patched through Dr. Bustillo, who accepted the patient. Patient will transfer to [facility]. MILAN FAIR APRN, NP Jul 13, 2017 12:04
[2017-07-13 15:51] LABS: BASOPHIL % 0.3 % (0.0-0.2); EOSINOPHIL # 0.1 10^3/uL (0.0-0.2); EOSINOPHIL % 1.8 % (0.0-5.0); HEMOGLOBIN 7.7 g/dL (13.9-16.3); LYMPHOCYTES # 0.4 10^3/uL (1.0-4.8); LYMPHOCYTES % 8.8 % (24.0-44.0); MEAN CELL HGB 25.3 pg (26-34); MEAN CELL HGB CONCENTRATION 31.3 g/dL (33-37); MEAN CORP VOLUME 80.9 fL (78-100); MONOCYTES # 0.4 10^3/uL (0.3-0.8); MONOCYTES % 9.3 % (5.0-12.0); NEUTROPHIL # 3.2 10^3/uL (1.8-7.7); NEUTROPHILS % 79.5 % (41.0-85.0)
--- NOTE | 2017-07-13 16:54 | PRM.DC ---
Discharge Summary Date of Discharge: Jul 13, 2017 Time of Request to Discharge: 16:40 Reason for Visit: Altered mental status / Complete heart block Additional Comments Scheduled Cilostazol (Cilostazol), 1 TAB PO BID, (Reported) Insulin Glargine,Hum.rec.anlog (Lantus Solostar), 25 UNITS SQ BID, (Reported) Ipratropium/Albuterol Sulfate (Iprat-Albut 0.5-3(2.5) Mg/3 Ml), 3 ML IH Q4, ( Reported) Scheduled PRN Glucagon,Human Recombinant (Glucagon Emergency Kit), 1 MG IM PRN PRN for HYPOGLYCEMIA, (Reported) Discontinued Medications Acetaminophen (Tylenol), 1 TAB PO Q4HR, (Reported) Discontinued Reason: HOLD Acetaminophen With Codeine (Tylenol With Codeine #3 Tablet), 1 TAB PO Q4HR, ( Reported) Discontinued Reason: HOLD Acetazolamide (Acetazolamide), 250 MG PO DAILY24, (Reported) Discontinued Reason: Discontinue Amlodipine Besylate (Amlodipine Besylate), 1 TAB PO DAILY, (Reported) Discontinued Reason: HOLD Aspirin (Aspir 81), 1 TAB PO DAILY, (Reported) Discontinued Reason: HOLD Clonidine Hcl (Clonidine Hcl), 1 TAB PO Q6HR, (Reported) Discontinued Reason: HOLD Cyclobenzaprine Hcl (Flexeril), 1 TAB PO Q8HR, (Reported) Discontinued Reason: Discontinue Dextran 70/Hypromellose (Artificial Tears Eye Drops), 2 DROP OP BID, (Reported) Discontinued Reason: No Longer Taking Famotidine (Pepcid), 1 TAB PO BID, (Reported) Discontinued Reason: Discontinue Furosemide (Lasix), 1 TAB PO DAILY, (Reported) Discontinued Reason: Discontinue Lactobacillus Acidophilus (Acidophilus), 1 EACH PO BID, (Reported) Discontinued Reason: Discontinue Loperamide Hcl (Loperamide), 4 MG PO PRN PRN for DIARRHEA, (Reported) Discontinued Reason: Discontinue Losartan Potassium (Losartan Potassium), 1 TAB PO DAILY, (Reported) Discontinued Reason: HOLD Melatonin (Melatonin), 1 TAB PO HS, (Reported) Discontinued Reason: Discontinue Metoprolol Tartrate 25MG (Lopresser 25MG), 1 TAB PO BID, (Reported) Discontinued Reason: HOLD Ondansetron Hcl (Zofran), 1 TAB PO Q8HR, (Reported) Discontinued Reason: HOLD Oseltamivir Phosphate (Tamiflu), 1 CAP PO DAILY24, (Reported) Discontinued Reason: Discontinue Potassium Chloride (Potassium Chloride), 1 CAP PO DAILY, (Reported) Discontinued Reason: No Longer Taking Simethicone (Simethicone), 160 MG PO Q6HR, (Reported) Discontinued Reason: No Longer Taking Tamsulosin Hcl (Flomax), 1 CAP PO DAILY, (Reported) Discontinued Reason: Discontinue Sepsis Evaluation @ Discharge Course Blood Pressure Systolic: 96 Blood Pressure Diastolic: 56 Blood Pressure Mean: 61 Plan Problems: (1) Hypotension Status: Acute ICD Code: I95.9 - Hypotension, unspecified SNOMED: 51097964 Assessment & Plan: Requiring dopamine, previously with Levophed also; one unit of blood. (2) Hypothermia Status: Acute ICD Code: T68.XXXA - Hypothermia, initial encounter SNOMED: 532335052 Assessment & Plan: Initially 87 degrees F rectal - warmed with heating blankets. (3) Anemia Status: Acute ICD Code: D64.9 - Anemia, unspecified SNOMED: 759880102 Assessment & Plan: One unit of blood given (4) Hypoglycemia Status: Acute ICD Code: E16.2 - Hypoglycemia, unspecified SNOMED: 819582828 Assessment & Plan: Multiple episodes of hypoglycemia needing D50. (5) Septic shock due to undetermined organism Status: Acute ICD Code: A41.9 - Sepsis, unspecified organism; R65.21 - Severe sepsis with septic shock SNOMED: 44472338 (6) Type II diabetes mellitus with peripheral artery disease Status: Chronic ICD Code: E11.51 - Type 2 diabetes mellitus with diabetic peripheral angiopathy without gangrene SNOMED: 49701592, 513413093 (7) Type II diabetes mellitus with ulcer Status: Acute ICD Code: E11.622 - Type 2 diabetes mellitus with other skin ulcer; L98.499 - Non-pressure chronic ulcer of skin of other sites with unspecified severity SNOMED: 119149052 Assessment & Plan: Multiple decubitus and other types of ulcers - perineum, coccyx, right hip, bilateral lower legs. 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 ICD Code: E11.21 - Type 2 diabetes mellitus with diabetic nephropathy SNOMED: 14901881, 96948327 (9) Protein calorie malnutrition Status: Chronic ICD Code: E46 - Unspecified protein-calorie malnutrition SNOMED: 326201388 (10) Type II diabetes mellitus with foot ulcer Status: Acute ICD Code: E11.621 - Type 2 diabetes mellitus with foot ulcer; L97.509 - Non- pressure chronic ulcer of other part of unspecified foot with unspecified severity SNOMED: 933498258, 9502345902101 Discharge Date: Jul 13, 2017 Discharge Disposition: Other (Patient stable but in critical status - requires transfer to infectious diseases specialist. ) Plan SEPSIS, SEPTIC SHOCK, ANEMIA, HYPOTHERMIA MRSA - Sputum. MRSA, Enterococcus faecalis (group D), Pseudomonas - Wounds (coccygeal, perineum , right hip, bilateral lower extremities). Fungus - Urine. [facility] to [place] [address] MICU - with EKG, ventilator, IV medications (dopamine, Versed, 0.45% NaCl/D5W); subclavian sheath in place ( possible need for transvenous pacer - not needed). Problem Qualifiers (1) Hypotension: Hypotension type: other hypotension type Qualified Codes: I95.89 - Other hypotension (2) Hypothermia: Encounter type: initial encounter Qualified Codes: T68.XXXA - Hypothermia, initial encounter (3) Anemia: Anemia type: unspecified type Qualified Codes: D64.9 - Anemia, unspecified (4) Protein calorie malnutrition: Protein-calorie malnutrition severity: moderate Qualified Codes: E44.0 - Moderate protein-calorie malnutrition (5) Type II diabetes mellitus with foot ulcer: Diabetes mellitus superintendent marine oil terminal insulin use: unspecified superintendent marine oil [employer] insulin use status Qualified Codes: E11.621 - Type 2 diabetes mellitus with foot ulcer; L97.509 - Non-pressure chronic ulcer of other part of unspecified foot with unspecified severity MILAN FAIR APRN,RUBA Jul 13, 2017 16:54
--- NOTE | 2017-07-15 12:41 | ECHO ---
DATE OF SERVICE: 07/12/2017 INDICATIONS: This is a 72-year-old male patient with sepsis, CHF, heart block, bradycardia. Echocardiographic study was requested to further evaluate structural and functional heart condition. FINDINGS: 1. Study quality was fair. 2. Underlying rhythm is sinus rhythm. 3. Overall, EF around 55%, mild LVH. LV dimensions were normal. The quality of the study was unable to delineate myocardial hubbard. Therefore, cannot determine on wall motion abnormality. 4. RV size and EF were normal. 5. Atria were dilated. 6. Aortic valve is heavily calcified with mild regurgitation. Significant stenosis was noted. The gradient was not very accurate. The velocity was calculated at 1.6 meter per second. There is evidence of aortic stenosis that is probably at least mild to moderate. 7. Mild mitral regurgitation with minimal calcification. 8. No pericardial effusion noted. 9. Unable to calculate mitral gradient. 10. Unable to calculate PA pressure. 11. No pericardial effusion. Yanic Almendarez MD DR: DAMIEN/magda JOB# [id number]
== END 2017-07-13 16:40 | disposition short-term general hospital (02) | DRG 871 ==
LOC: ICU 09:39
PROVIDERS: ADMIT Internal Medicine; ATTEND Internal Medicine
PROC: 02HV33Z Insertion of Infusion Device into Superior Vena Cava, Percutaneous Approach (ICD-10-PCS; principal; 2017-07-11)
PROC: 5A1945Z Respiratory Ventilation, 24-96 Consecutive Hours (ICD-10-PCS; 2017-07-11)
PROC: 30233N1 Transfusion of Nonautologous Red Blood Cells into Peripheral Vein, Percutaneous Approach (ICD-10-PCS; 2017-07-13)
DX: A41.9 Sepsis, unspecified organism (principal); R65.21 Severe sepsis with septic shock; E46 Unspecified protein-calorie malnutrition; L89.159 Pressure ulcer of sacral region, unspecified stage; I44.2 Atrioventricular block, complete; L89.210 Pressure ulcer of right hip, unstageable; E11.51 Type 2 diabetes mellitus with diabetic peripheral angiopathy without gangrene; E11.22 Type 2 diabetes mellitus with diabetic chronic kidney disease; I13.0 Hypertensive heart and chronic kidney disease with heart failure and stage 1 through stage 4 chronic kidney disease, or unspecified chronic kidney disease; E11.621 Type 2 diabetes mellitus with foot ulcer; E11.622 Type 2 diabetes mellitus with other skin ulcer; E78.00 Pure hypercholesterolemia, unspecified; I25.10 Atherosclerotic heart disease of native coronary artery without angina pectoris; I50.9 Heart failure, unspecified; J44.9 Chronic obstructive pulmonary disease, unspecified; K21.9 Gastro-esophageal reflux disease without esophagitis; L98.499 Non-pressure chronic ulcer of skin of other sites with unspecified severity; N18.9 Chronic kidney disease, unspecified; D64.9 Anemia, unspecified; E11.649 Type 2 diabetes mellitus with hypoglycemia without coma; L89.899 Pressure ulcer of other site, unspecified stage; E11.319 Type 2 diabetes mellitus with unspecified diabetic retinopathy without macular edema; N31.9 Neuromuscular dysfunction of bladder, unspecified; N40.0 Benign prostatic hyperplasia without lower urinary tract symptoms; B95.62 Methicillin resistant Staphylococcus aureus infection as the cause of diseases classified elsewhere; B95.2 Enterococcus as the cause of diseases classified elsewhere; L97.519 Non-pressure chronic ulcer of other part of right foot with unspecified severity; B96.5 Pseudomonas (aeruginosa) (mallei) (pseudomallei) as the cause of diseases classified elsewhere; Z86.73 Personal history of transient ischemic attack (TIA), and cerebral infarction without residual deficits; Z95.1 Presence of aortocoronary bypass graft; Z79.899 Other long term (current) drug therapy; Z79.82 Long term (current) use of aspirin; Z79.84 Long term (current) use of oral hypoglycemic drugs; Z79.4 Long term (current) use of insulin; Z78.1 Physical restraint status; Z87.440 Personal history of urinary (tract) infections; Z68.39 Body mass index [BMI] 39.0-39.9, adult
CPT/HCPCS: 36415; 36430; 71045; 74018; 80053; 80076; 80202; 81000; 82550; 82553; 82803; 82948; 83036; 83880; 84443; 84484; 85025; 85379; 86885; 86900; 86901; 86921; 87040; 87070; 87077; 87086; 87186; 87205; 93005; 93307; 94002; 94003; 99285; C9113; J1650; J1940; J2250; J7030; J7040; J7042; J7050; P9016; P9047; 74000; A9270; J1450; J2370; J2543; J3490; J7060

== ENCOUNTER → 2017-08-18 | Outpatient (CLI) | payer MEDICARE, MEDICAID ==
[~2017-08-18] MED LIST: ACET-685 PO; ACET250T2 PO; ACET325T12 PO; AMLO10TA2 PO; ASPI-484 PO; CILO100T PO; CLON0.1T PO; CYCL10TA2 PO; DEXT15DR5 OP; FAMO-75 PO; FURO-80 PO; GLUC1KIT IM; INSU100I13 SQ; IPRA3AMP IH; LACT1CAP4 PO; LOPE2CAP PO; LOSA25TA5 PO; MELA3TAB2 PO; METO25TA4 PO; ONDA4TAB7 PO; OSEL30CA PO; POTA10CA PO; SIME80TA16 PO; TAMS-14 PO
== END | disposition home or self-care (01) ==
LOC: NPLAB 18:52
PROVIDERS: ATTEND Family Medicine
DX: T81.30XA Disruption of wound, unspecified, initial encounter (principal); X58.XXXA Exposure to other specified factors, initial encounter; Y93.89 Activity, other specified; Y92.89 Other specified places as the place of occurrence of the external cause; Y99.8 Other external cause status
CPT/HCPCS: 87070; 87077; 87186

== ENCOUNTER → 2017-08-19 | Outpatient (CLI) | payer MEDICARE, OTHER | END | disposition home or self-care (01) | LOC: NPLAB 15:28 | PROVIDERS: ATTEND Family Medicine | DX: E72.20 Disorder of urea cycle metabolism, unspecified (principal) | CPT/HCPCS: 82140 ==